=== PATIENT | male | born 1990 | race Caucasian/White ===

== ENCOUNTER 2017-06-25 06:48 | Emergency (ER) | payer OTHER ==
[2017-06-25 07:12] VITALS: BP 115/69; PULSE 60; TEMP 98.4; BMI 40.6
[2017-06-25] MEDS ORDERED: IBUPROFEN 400 MG TABLET (FP) PO ONE ×2 (07:37→07:43)
--- NOTE | 2017-06-25 07:48 | PDOC ---
History of Present Illness - General Chief Complaint: Pain Stated Complaint: HEADACHE Time Seen by Provider: 06/25/17 07:17 History Source: Patient - History of Present Illness Timing/Duration: reports: other Severity: Yes: moderate Associated Symptoms: reports: vision changes Past History - Past Medical History Allergies/Adverse Reactions: Allergies Allergy/AdvReac Type Severity Reaction Status Date / Time clarithromycin [From Biaxin] Allergy Severe Vomiting Verified 06/25/17 07:08 Home Medications: Ambulatory Orders Paroxetine HCl [Paxil] 10 mg PO DAILY 06/25/17 Testosterone [Androderm] 1 each TD DAILY 06/25/17 Psychiatric Problems: Yes (Anxiety) Other medical history: Testosterone therapy - Psycho/Social/Smoking Cessation Hx Anxiety: Yes Suicidal Ideation: No Smoking History: Current every day smoker Number of Cigarettes Smoked Daily: 40 Information on smoking cessation initiated: No 'Breaking Loose' booklet given: 12/26/15 Hx Alcohol Use: No Drug/Substance Use Hx: No Substance Use Type: None Review of Systems - Review of Systems Constitutional: No: Chills, Fever HEENTM: Yes: Blurred Vision Neurological: Yes: Headache. No: Dizziness *Physical Exam - Vital Signs Last Vital Signs Temp Pulse Resp BP Pulse Ox 98.4 F 60 20 115/69 98 06/25/17 07:08 06/25/17 07:08 06/25/17 07:08 06/25/17 07:08 06/25/17 07:08 - Physical Exam General Appearance: Yes: Appropriately Dressed. No: Apparent Distress HEENT: positive: EOMI, SANYA, Normal Voice. negative: Scleral Icterus (R), Scleral Icterus (L) Neck: positive: Supple Respiratory/Chest: negative: Respiratory Distress Neurologic: positive: Fully Oriented, Alert, Normal Mood/Affect, Motor Strength 5/5 ED Treatment Course - RADIOLOGY Radiology Studies Ordered: Category Date Time Status HEAD CT WITHOUT CONTRAST [CT] Stat CT Scan 06/25/17 07:37 Ordered - Medications Given in the ED: ED Medications Discontinued Medications Generic Name Dose Route Start Last Admin Trade Name Freq PRN Reason Stop Dose Admin Ibuprofen 800 mg 06/25/17 07:37 06/25/17 07:42 Motrin - PO 06/25/17 07:38 800 mg ONCE ONE Administration Medical Decision Making - Medical Decision Making 06/25/17 07:43 27 years old male history of cryptorchidism, on testosterone, chronic hip pain, anxiety, presenting with headache. Patient reports right temporal headache with retro-orbital pain and blurry vision to right eye that started 2 days ago, described as "an achy pressure" and is 7 out of 10 in intensity. States pain is constant, with no exacerbating or alleviating factors. Has not tried anything for pain. Patient also reports intermittent pressure to left zoroastrian for several weeks and after hearing "a pop" to left zoroastrian, states pain resolved. Patient also complaining of nausea, vomiting yesterday. Denies any dizziness. Patient states he is concerned as he has a friend of a family member who recently from a brain aneurysm See exam LINDO Possibly migranous No red flags on exam -Pain control -reeval 06/25/17 07:48 Patient insisting on CAT scan in ED. I had a lengthy conversation with patient , explaining to him that there is no indication for head CT at this time and also informed patient of the risk of radiation. I also told patient that in the event of a suspicion of an aneurysm, that the test of choice would be an MRI and that there was no indication for that as this time. Patient verbalized understanding, but still requesting CT 06/25/17 08:07 06/25/17 09:27 CT read as negative for acute abnormality. Pain better with Motrin. Stable for discharge to follow-up with neurology if headaches persist *DC/Admit/Observation/Transfer Diagnosis at time of Disposition: Headache Qualifiers: Headache type: unspecified Headache chronicity pattern: acute headache Intractability: not intractable Qualified Code(s): R51 - Headache - Discharge Dispostion Disposition: HOME Condition at time of disposition: Improved - Referrals Referrals: Vladimir Russo MD [Primary Care Provider] - Ant Jimenez MD [Staff Physician] - - Patient Instructions Printed Discharge Instructions: DI for Headache Additional Instructions: Your CT scan was negative for any acute abnormalities. Take motrin or exedrine for headache as needed If symptoms persist, please follow-up with Dr. Jimenez of neurology
--- NOTE | 2017-06-25 08:04 | PDOC ---
*Physical Exam - Vital Signs Last Vital Signs Temp Pulse Resp BP Pulse Ox 98.4 F 60 20 115/69 98 06/25/17 07:08 06/25/17 07:08 06/25/17 07:08 06/25/17 07:08 06/25/17 07:08 ED Treatment Course - Medications Given in the ED: ED Medications Discontinued Medications Generic Name Dose Route Start Last Admin Trade Name Rajeev PRN Reason Stop Dose Admin Ibuprofen 800 mg 06/25/17 07:37 06/25/17 07:42 Motrin - PO 06/25/17 07:38 800 mg ONCE ONE Administration Medical Decision Making - Medical Decision Making 06/25/17 08:04 Pt seen by the Advanced Practice Provider under my direct supervision Ancillary studies reviewed I agree with plan as outlined by the Advanced Practice Provider TIESHA Paula *DC/Admit/Observation/Transfer Diagnosis at time of Disposition: Headache - Discharge Dispostion Disposition: HOME Condition at time of disposition: Improved - Referrals Referrals: Ant Jimenez MD [Staff Physician] - Vladimir Russo MD [Primary Care Provider] - - Patient Instructions Printed Discharge Instructions: DI for Headache Additional Instructions: Your CT scan was negative for any acute abnormalities. Take motrin or exedrine for headache as needed If symptoms persist, please follow-up with Dr. Jimenez of neurology
== END 2017-06-25 09:37 | disposition home or self-care (01) ==
LOC: JER 06:48
DX: R51 Headache (principal); F41.9 Anxiety disorder, unspecified; F17.210 Nicotine dependence, cigarettes, uncomplicated
CPT/HCPCS: 70450-TC; 99283-25

== ENCOUNTER 2017-07-19 11:10 | Emergency (ER) | payer OTHER ==
[2017-07-19 11:18] VITALS: BP 136/73; TEMP 98.7; BMI 40.6
--- NOTE | 2017-07-19 11:59 | PDOC ---
History of Present Illness - General Chief Complaint: Shortness of Breath Stated Complaint: SOB, CHEST PAIN Time Seen by Provider: 07/19/17 11:38 History Source: Patient, Parent(s) - History of Present Illness Timing/Duration: other Associated Symptoms: reports: shortness of breath. denies: chest pain, fever/ chills, nausea/vomiting, syncope, weakness Past History - Past Medical History Allergies/Adverse Reactions: Allergies Allergy/AdvReac Type Severity Reaction Status Date / Time clarithromycin [From Biaxin] Allergy Severe Vomiting Verified 07/19/17 11:18 Home Medications: Ambulatory Orders Paroxetine HCl [Paxil] 10 mg PO DAILY 06/25/17 Testosterone [Androderm] 1 each TD DAILY 06/25/17 Oxycodone HCl/Acetaminophen [Percocet 5-325 mg Tablet] 1 - 2 tab PO Q4H PRN 04/29 Psychiatric Problems: Yes (Anxiety) - Psycho/Social/Smoking Cessation Hx Anxiety: Yes Suicidal Ideation: No Smoking History: Current every day smoker Number of Cigarettes Smoked Daily: 40 Information on smoking cessation initiated: No 'Breaking Loose' booklet given: 12/26/15 Hx Alcohol Use: No Drug/Substance Use Hx: No Substance Use Type: None Review of Systems - Review of Systems Constitutional: No: Chills, Fever Respiratory: Yes: Shortness of Breath. No: Cough Cardiac (ROS): Yes: Palpitations. No: Lightheadedness, Syncope *Physical Exam - Vital Signs Last Vital Signs Temp Pulse Resp BP Pulse Ox 98.7 F 78 18 136/73 100 07/19/17 11:11 07/19/17 11:11 07/19/17 11:11 07/19/17 11:11 07/19/17 11:11 - Physical Exam General Appearance: Yes: Appropriately Dressed. No: Apparent Distress HEENT: positive: Normal Voice Neck: positive: Supple Respiratory/Chest: positive: Lungs Clear, Normal Breath Sounds. negative: Respiratory Distress Cardiovascular: positive: Regular Rate, S1, S2 Gastrointestinal/Abdominal: positive: Soft. negative: Tender Integumentary: positive: Dry, Warm Neurologic: positive: Fully Oriented, Alert, Normal Mood/Affect Medical Decision Making - Medical Decision Making 07/19/17 12:00 27 yo obesed M, history of cryptoorchism, non-compliant with testosterone, chronic hip pain on percocet currently smokes, former cocaine user, anxiety on paxil, f/u with PMD, refuses to see a therapist/psychiatrist, multiple ED visits , presenting with complaint that since last night, every time he tries to sleep , he wakes up gasping for air with palpitations but also feels that his heart rate slows down. Unable to and afraid to sleep since then. Denies any new stressors recently but mother at bedside and states patient's grandmother, who patient is close to, was recently diagnosed with dementia. Patient reports feeling better now that he is in the ED. No SI/HI See exam Anxiety Improved since in ED Well claire and stable w/ unremarkable ekg Pt requests being observed in ED because he feels that if he goes home and try to sleep, that his heart rate will go down 07/19/17 13:10 After > 1 hr observation, pt has remained stable in ED on monitor. Does appears mildly anxious. Took his paxil this am. Now feels safe being discharged in care of family. Encouraged to f/u closely with his PMD and consider seeing a therapist and enact lifestyle changes such as exercise, cut down on caffeine ( drinks multiple diet coke daily) and smoking cessation 07/19/17 13:12 07/19/17 13:26 *DC/Admit/Observation/Transfer Diagnosis at time of Disposition: Anxiety - Discharge Dispostion Disposition: HOME Condition at time of disposition: Improved - Referrals Referrals: Vladimir Russo MD [Primary Care Provider] - - Patient Instructions Printed Discharge Instructions: Anxiety Disorders, Tips to Help You Stop Smoking Additional Instructions: Please follow up with your PMD
[2017-07-19 13:26] VITALS: PULSE 66
--- NOTE | 2017-07-20 12:24 | EKG ---
Test Reason : Blood Pressure : / mmHG Vent. Rate : 080 BPM Atrial Rate : 081 BPM P-R Int : 154 ms QRS Dur : 102 ms QT Int : 404 ms P-R-T Axes : 057 -15 050 degrees QTc Int : 465 ms NORMAL SINUS RHYTHM SEPTAL INFARCT , AGE UNDETERMINED ABNORMAL ECG WHEN COMPARED WITH ECG OF 08-OCT-2010 20:39, SEPTAL INFARCT IS NOW PRESENT Confirmed by COLTON BRASHER MD ([id number]) on 07/20/2017 12:23:38 PM Referred By: Confirmed By:COLTON BRASHER MD
== END 2017-07-19 13:26 | disposition home or self-care (01) ==
LOC: JER 11:10
DX: F41.9 Anxiety disorder, unspecified (principal); Q53.9 Undescended testicle, unspecified; Z91.14 Patient's other noncompliance with medication regimen; F17.210 Nicotine dependence, cigarettes, uncomplicated
CPT/HCPCS: 93005; 93010; 99283-25

== ENCOUNTER 2019-05-08 22:58 | Emergency (ER) | payer SELFPAY ==
[2019-05-08 23:03] VITALS: BP 117/81; PULSE 70; TEMP 97.4; BMI 37.3
--- NOTE | 2019-05-08 23:54 | PDOC ---
*Physical Exam - Vital Signs Last Vital Signs Temp Pulse Resp BP Pulse Ox 97.4 F L 70 18 117/81 99 05/08/19 23:00 05/08/19 23:00 05/08/19 23:00 05/08/19 23:00 05/08/19 23:00 ED Treatment Course - LABORATORY CBC & Chemistry Diagram: 05/09/19 01:10 05/09/19 01:10 Medical Decision Making - Medical Decision Making 05/08/19 23:54 Patient seen by the advanced practice provider under my direct supervision. Ancillary testing reviewed as necessary. I agree with plan as outlined by the advanced practice provider. *DC/Admit/Observation/Transfer Diagnosis at time of Disposition: Anxiety - Discharge Dispostion Disposition: HOME Condition at time of disposition: Fair - Prescriptions Prescriptions: LORazepam [Ativan] 0.5 mg PO BID PRN #6 tablet MDD 2 PRN Reason: Anxiety - Referrals Referrals: Vladimir Russo MD [Primary Care Provider] - - Patient Instructions Printed Discharge Instructions: DI for Anxiety -- Adult Additional Instructions: Your evaluation in the emergency department is incomplete and see follow-up with her primary doctor. Your EKG was unchanged from her previous EKG. Initial troponin or cardiac enzyme is normal. Your chest x-ray is normal. Take Tylenol or Motrin as needed for pain. Follow manufacture's instructions for appropriate dosage. Return to the emergency department for any new or worsening symptoms. Thank you very much for choosing us to provide your emergent health care needs. - Post Discharge Activity
[2019-05-09] MEDS ORDERED: LORazepam 1 MG TABLET PO ONE (00:36)
[2019-05-09] MEDS ORDERED: LORazepam 0.5 MG TABLET ONE (00:44)
--- NOTE | 2019-05-09 00:44 | PDOC ---
History of Present Illness - General Chief Complaint: Chest Pain Stated Complaint: ANXIETY Time Seen by Provider: 05/08/19 23:51 History Source: Patient, Old Records Exam Limitations: No Limitations - History of Present Illness Initial Comments: 05/09/19 00:44 HISTORY OF PRESENT ILLNESS: 29-year-old obese male with history of cryptorchidism noncompliant with testosterone, 2 pack-a-day smoker, remote cocaine use, anxiety presents emergency departments with sharp stabbing midsternal chest pain rated 9/10 with tachypnea and circumoral tingling. Patient reports symptoms are consistent with his usual anxiety attack. Patient denies any fevers, chills, nausea or vomiting. No recent travel or sick contacts. PAST MEDICAL HISTORY: see HPI SURGICAL HISTORY: Denies ALLERGIES: biaxin REVIEW OF SYSTEMS General/Constitutional: Denies fever or chills. Denies weakness, weight change. HEENT: Denies change in vision. Denies ear pain or discharge. Denies sore throat. Cardiovascular: see HPI Respiratory: Denies cough, wheezing, or hemoptysis. Gastrointestinal: Denies nausea, vomiting, diarrhea or constipation. Denies rectal bleeding. Genitourinary: Denies dysuria, frequency, or change in urination. Musculoskeletal: Denies joint or muscle swelling or pain. Denies neck or back pain. Skin and breasts: Denies rash or easy bruising. Neurologic: Denies headache, vertigo, loss of consciousness, or loss of sensation. Psychiatric: Denies depression or anxiety. Endocrine: Denies increased thirst. Denies abnormal weight change. Hematologic/Lymphatic: Denies anemia, easy bleeding, or history of blood clots. Allergic/Immunologic: Denies hives or skin allergy. Denies latex allergy. PHYSICAL EXAM General Appearance: Well-appearing, appropriately dressed. No apparent distress , no intoxication. HEENT: EOMI, PERRLA, normal ENT inspection, normal voice, TMs normal, pharynx normal. No conjunctival pallor. No photophobia, scleral icterus. Neck: Supple. Trachea midline. No tenderness, rigidity, carotid bruit, stridor , lymphadenopathy, or thyromegaly. Respiratory/Chest: Lungs CTAB. No shortness of breath, chest tenderness, respiratory distress, accessory muscle use. No crackles, rales, rhonchi, stridor , wheezing, dullness Cardiovascular: RRR. S1, S2. No JVD, murmur, bradycardia, tachycardia. Vascular Pulses: Dorsalis-Pedis (R): 2+, Dorsalis-Pedis (L): 2+ Gastrointestinal/Abdominal: Normal bowel sounds. Obese abdomen soft. No tenderness or rebound tenderness. No organomegaly, pulsatile mass, guarding, hernia, hepatomegaly, splenomegaly. Lymphatic: No adenopathy, tenderness. Musculoskeletal/Extremities: Normal inspection. FROM of all extremities, normal capillary refill. Pelvis Stable. No CVA tenderness. No tenderness to extremities, pedal edema, swelling, erythema or deformity. Integumentary: Appropriate color, dry, warm. No cyanosis, erythema, jaundice or rash Neurologic: legal collector II-XII intact. Fully oriented, alert. Appropriate mood/affect. Motor strength 5/5. No appreciable EOM palsy, facial droop or sensory deficit. 05/09/19 00:46 Past History - Past Medical History Allergies/Adverse Reactions: Allergies Allergy/AdvReac Type Severity Reaction Status Date / Time clarithromycin [From Biaxin] Allergy Severe Vomiting Verified 05/08/19 23:03 Home Medications: Ambulatory Orders Paroxetine HCl [Paxil] 10 mg PO DAILY 06/25/17 Testosterone [Androderm] 1 each TD DAILY 06/25/17 Oxycodone HCl/Acetaminophen [Percocet 5-325 mg Tablet] 1 - 2 tab PO Q4H PRN 04/29 LORazepam [Ativan] 0.5 mg PO BID PRN #6 tablet MDD 2 05/09/19 COPD: No Psychiatric Problems: Yes (Anxiety) - Suicide/Smoking/Psychosocial Hx Smoking History: Never smoked Number of Cigarettes Smoked Daily: 40 'Breaking Loose' booklet given: 12/26/15 Hx Alcohol Use: No Drug/Substance Use Hx: No Substance Use Type: None *Physical Exam - Vital Signs Last Vital Signs Temp Pulse Resp BP Pulse Ox 97.4 F L 70 18 117/81 99 05/08/19 23:00 05/08/19 23:00 05/08/19 23:00 05/08/19 23:00 05/08/19 23:00 Heart Score/ECG Review - History History: Slightly suspicious - Electrocardiogram EKG: Normal - Age Age: </= 45 - Risk Factors Risk Factors Heart Score: Yes Smoking History, Yes Hx Obesity Based on the list above the patient has:: 1-2 risk factors - Troponin Troponin: </= normal limit - Score Heart Score - Total: 1 - ECG Intrepretation Rhythm: Regular Rhythm - ST and T Early Repolarization: No Non Specific ST-T Wave changes: No - ECG Impressions Bradycardia: Yes ED Treatment Course - LABORATORY CBC & Chemistry Diagram: 05/09/19 01:10 05/09/19 01:10 - RADIOLOGY Radiology Studies Ordered: Category Date Time Status CHEST PA & LAT [RAD] Stat Radiology 05/09/19 00:35 Ordered Medical Decision Making - Medical Decision Making 05/09/19 00:47 A/P: 29-year-old male with chest pain, shortness of breath and circum-aural tingling is currently resolved Differential diagnosis includes but is not limited to- ACS, PE, pneumonia, anxiety, GERD, hiatal hernia, musculoskeletal pain. As there is no tenderness to the chest upon palpations less likely musculoskeletal. EKG Labs including cardiac profile and d-dimer Chest x-ray Ativan 1 mg orally now Reassess 05/09/19 01:21 05/09/19 02:19 D-dimer is negative. Chemistries are unremarkable This troponin is less than 0.02. EKG sinus bradycardia with rate of 57. Normal intervals present. No ischemic changes noted. Chest x-rays read by me: Angles are clear. Lung kohler are clear without infiltrate or consolidations noted. Cardiac silhouette is within normal limits. No pneumothorax is seen. Trachea is midline. Patient is currently pain-free. Discharge home *DC/Admit/Observation/Transfer Diagnosis at time of Disposition: Anxiety - Discharge Dispostion Disposition: HOME Condition at time of disposition: Fair Decision to Admit order: No - Prescriptions Prescriptions: LORazepam [Ativan] 0.5 mg PO BID PRN #6 tablet MDD 2 PRN Reason: Anxiety - Referrals Referrals: Vladimir Russo MD [Primary Care Provider] - - Patient Instructions Printed Discharge Instructions: DI for Anxiety -- Adult Additional Instructions: Your evaluation in the emergency department is incomplete and see follow-up with her primary doctor. Your EKG was unchanged from her previous EKG. Initial troponin or cardiac enzyme is normal. Your chest x-ray is normal. Take Tylenol or Motrin as needed for pain. Follow manufacture's instructions for appropriate dosage. Return to the emergency department for any new or worsening symptoms. Thank you very much for choosing us to provide your emergent health care needs. - Post Discharge Activity
[2019-05-09 01:47] LABS: INR 1.03 (0.83-1.09); PROTHROMBIN TIME (PATIENT) 12.2 SEC (9.7-13.0)
[2019-05-09 01:48] LABS: ALBUMIN 4.2 g/dl (3.4-5.0); ALK PHOS 76 U/L (45-117); ANION GAP 6 MMOL/L (8-16); BILIRUBIN,TOTAL 0.3 mg/dL (0.2-1); BLOOD UREA NITROGEN 10.4 mg/dL (7-18); CALCIUM 8.9 mg/dL (8.5-10.1); CHLORIDE 106 mmol/L (98-107); CO2 27 mmol/L (21-32); CREATININE 0.9 mg/dL (0.55-1.3); GLUCOSE,RANDOM 87 mg/dL (74-106); POTASSIUM 3.9 mmol/L (3.5-5.1); SGOT/AST 15 U/L (15-37); SGPT/ALT 19 U/L (13-61); SODIUM 139 mmol/L (136-145); TOT PROT 7.6 g/dl (6.4-8.2)
[2019-05-09 02:12] LABS: BASO % 0.6 % (0-2.0); EOS % 1.2 % (0-4.5); HEMOGLOBIN 14.1 GM/dL (11.7-16.9); LYMPH % 30.4 % (8-40); MCH 29.7 pg (25.7-33.7); MCHC 34.4 g/dl (32.0-35.9); MEAN CELL VOLUME 86.4 fl (80-96); MEAN PLT VOLUME 8.1 fl (7.5-11.1); MONO % 6.4 % (3.8-10.2); NEUT % 61.4 % (42.8-82.8); PLATELET COUNT 308 K/MM3 (134-434); RBC 4.74 M/mm3 (4.00-5.60); RDW 12.8 % (11.9-15.9); WHITE BLOOD COUNT 11.4 K/mm3 (4.0-10.0)
--- NOTE | 2019-05-09 13:38 | EKG ---
Test Reason : Blood Pressure : / mmHG Vent. Rate : 057 BPM Atrial Rate : 057 BPM P-R Int : 152 ms QRS Dur : 108 ms QT Int : 442 ms P-R-T Axes : 042 -06 052 degrees QTc Int : 430 ms SINUS BRADYCARDIA INCOMPLETE RIGHT BUNDLE BRANCH BLOCK BORDERLINE ECG WHEN COMPARED WITH ECG OF 19-JUL-2017 11:18, NO SIGNIFICANT CHANGE WAS FOUND Confirmed by COLTON BRASHER MD ([id number]) on 05/09/2019 1:38:06 PM Referred By: Confirmed By:COLTON BRASHER MD
== END 2019-05-09 03:22 | disposition home or self-care (01) ==
LOC: JER 22:58
DX: F41.9 Anxiety disorder, unspecified (principal); F17.210 Nicotine dependence, cigarettes, uncomplicated; N50.89 Other specified disorders of the male genital organs; Q53.9 Undescended testicle, unspecified; Z91.14 Patient's other noncompliance with medication regimen
CPT/HCPCS: 36415; 71046-TC-FY; 80053; 82550; 82553; 83735; 84484; 85025; 85379; 85610; 93005; 93010; 99282-25

== ENCOUNTER 2024-07-27 17:12 | Emergency (ER) | payer SELFPAY ==
[2024-07-27 17:19] VITALS: BP 126/75; PULSE 104; RESP 19; TEMP 97.8; BMI 39.3
[2024-07-27 19:21] LABS: BASO % 0.5 % (0-2.0); EOS % 1.1 % (0-4.5); HEMATOCRIT 41.1 % (35.4-49); HEMOGLOBIN 14.6 GM/dL (11.7-16.9); LYMPH % 31.1 % (8-40); MCHC 35.5 g/dl (32.0-35.9); MEAN CELL VOLUME 84.6 fl (80-96); MEAN PLT VOLUME 7.6 fl (7.5-11.1); MONO % 7.4 % (3.8-10.2); NEUT % 59.9 % (42.8-82.8); PLATELET COUNT 315 10^3/uL (134-434); RBC 4.86 M/mm3 (4.00-5.60); RDW 13.3 % (11.9-15.9)
[2024-07-27 19:35] LABS: POTASSIUM 3.9 mmol/L (3.5-5.1)
[2024-07-27 19:38] LABS: BLOOD UREA NITROGEN 10.5 mg/dL (7-18); CALCIUM 8.9 mg/dL (8.5-10.1)
[2024-07-27 19:41] LABS: CREATININE 0.9 mg/dL (0.55-1.3)
[2024-07-27 19:43] LABS: BILIRUBIN,TOTAL 0.4 mg/dL (0.2-1); TOT PROT 7.2 g/dl (6.4-8.2)
[2024-07-27] MEDS ORDERED: LORazepam 0.5 MG TABLET ONE (20:36)
[2024-07-27] MEDS: LORazepam 0.5 MG TABLET PO ONE (20:45)
== END 2024-07-27 21:27 | disposition home or self-care (01) ==
LOC: JER 17:12
DX: R00.2 Palpitations (principal); R07.89 Other chest pain
CPT/HCPCS: 36415; 71046-TC-FY; 80053; 84439; 84443; 84484; 85025; 85379; 93005; 93010; 99285-25